=== PATIENT | female | born 2000 | race African-American/Black ===

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

== ENCOUNTER 2020-09-01 17:19 | Emergency (ER) | payer MEDICAID | END 2020-09-01 19:11 | disposition home or self-care (01) | LOC: MADERS 17:19 | DX: M79.671 Pain in right foot (principal); X58.XXXA Exposure to other specified factors, initial encounter; Y93.67 Activity, basketball ==